=== PATIENT | male | born 1975 | race Caucasian/White ===

== ENCOUNTER 2017-03-23 01:41 | Emergency (ER) | payer SELFPAY ==
--- NOTE | 2017-03-23 01:57 | EDM.PDOC ---
ED HPI GENERAL MEDICAL PROBLEM - General Chief Complaint: Cardiovascular Problem Stated Complaint: CHEST PAINS Time Seen by Provider: 03/23/17 01:50 - History of Present Illness INITIAL COMMENTS - FREE TEXT/NARRATIVE: HISTORY AND PHYSICAL: History of present illness: Patient's 41-year-old white male with history of anxiety presents a concern of palpitations denies chest pain service breath nausea vomiting or other complaints seen in the past for this multiple times he is also taking classes as an outpatient for anxiety Review of systems: As per history of present illness and below otherwise all systems reviewed and negative. Past medical history: As per history of present illness and as reviewed below otherwise noncontributory. Surgical history: As per history of present illness and as reviewed below otherwise noncontributory. Social history: No reported history of drug or alcohol abuse. Family history: As per history of present illness and as reviewed below otherwise noncontributory. Physical exam: HEENT: Atraumatic, normocephalic, pupils reactive, negative for conjunctival pallor or scleral icterus, mucous membranes moist, throat clear, neck supple, nontender, trachea midline. Lungs: Clear to auscultation, breath sounds equal bilaterally, chest nontender. Heart: S1S2, regular, negative for clicks, rubs, or JVD. Abdomen: Soft, nondistended, nontender. Negative for masses or hepatosplenomegaly. Negative for costovertebral tenderness. Pelvis: Stable nontender. Genitourinary: Deferred. Rectal: Deferred. Extremities: Atraumatic, negative for cords or calf pain. Neurovascular unremarkable. Neuro: Awake, alert, oriented. Cranial nerves II through XII unremarkable. Cerebellum unremarkable. Motor and sensory unremarkable throughout. Exam nonfocal. Diagnostics: Chest x-ray EKG Therapeutics: None Impression: #1 anxiety #2 palpitations Definitive disposition and diagnosis as appropriate pending reevaluation and review of above. - Related Data Allergies Allergy/AdvReac Type Severity Reaction Status Date / Time morphine Allergy Rash Verified 03/23/17 01:53 Home Meds: Home Meds Quinapril [Accupril] 10 mg PO DAILY 03/23/17 [History] Past Medical History HEENT History: Reports: None Cardiovascular History: Reports: Hypertension, Other (See Below) Other Cardiovascular History: DYSRYTHMIA Respiratory History: Reports: None Gastrointestinal History: Reports: None Neurological History: Reports: None Psychiatric History: Reports: Anxiety Endocrine/Metabolic History: Reports: None Hematologic History: Reports: None Dermatologic History: Reports: None - Past Surgical History Musculoskeletal Surgical History: Reports: Arthroscopic Knee, Other (See Below) Social & Family History - Family History Cardiac: Reports: CAD, Hypertension, Stent Endocrine/Metabolic: Reports: Diabetes, type II - Tobacco Use Smoking Status *Q: Never Smoker Second Hand Smoke Exposure: No - Alcohol Use Days Per Week of Alcohol Use: 0 - Recreational Drug Use Recreational Drug Use: No Drug Use in Last 12 Months: Yes Recreational Drug Type: Reports: Other (see below) Recreational Drug Use Frequency: Not Used In Over 1 Month ED ROS GENERAL - Review of Systems Review Of Systems: ROS reveals no pertinent complaints other than HPI. ED EXAM, GENERAL - Physical Exam Exam: See Below (See dictation) Departure - Departure Time of Disposition: 01:56 Disposition: Home, Self-Care 01 Condition: Good Clinical Impression: Palpitations, Anxiety Referrals: PCP,None [Primary Care Provider] - Additional Instructions: The following information is given to patients seen in the emergency department who are being discharged to home. This information is to outline your options for follow-up care. We provide all patients seen in our emergency department with a follow-up referral. The need for follow-up, as well as the timing and circumstances, are variable depending upon the specifics of your emergency department visit. If you don't have a primary care physician on staff, we will provide you with a referral. We always advise you to contact your personal physician following an emergency department visit to inform them of the circumstance of the visit and for follow-up with them and/or the need for any referrals to a consulting specialist. The emergency department will also refer you to a specialist when appropriate. This referral assures that you have the opportunity for followup care with a specialist. All of these measure are taken in an effort to provide you with optimal care, which includes your followup. Under all circumstances we always encourage you to contact your private physician who remains a resource for coordinating your care. When calling for followup care, please make the office aware that this follow-up is from your recent emergency room visit. If for any reason you are refused follow-up, please contact the [facility] emergency department at and asked to speak to the emergency department charge nurse. Follow-up primary medical doctor 1 today's return as needed as discussed
[2017-03-23 06:36] VITALS: BP 146/84
--- NOTE | 2017-03-25 10:38 | CR ---
EXAM DATE: 03/23/17 PATIENT'S AGE: 41 Patient: HUSSAIN CORREA Facility: [place], [place] Site . Site : [id number] Study: XRay Chest [id number]/16/2017 2:34:23 AM Ordering Physician: Misty Lucas Final Report: INDICATION: PALPITATIONS TECHNIQUE: Chest 1 view. COMPARISON: 08/30/2015. FINDINGS: No pneumothorax or pleural effusion. Lungs are clear. Cardiac and mediastinal contours are within normal limits. Upper abdomen and osseous structures as imaged show no acute abnormality. IMPRESSION: No acute cardiopulmonary disease. Dictated by: Clifford Jhaveri MD @ 03/23/2017 02:48:52 (Electronic Signature) Report Signed by Proxy. [facility]
== END 2017-03-23 03:06 | disposition home or self-care (01) ==
LOC: MW.ED 01:41
DX: F41.9 Anxiety disorder, unspecified (principal); I10 Essential (primary) hypertension; Z88.5 Allergy status to narcotic agent
CPT/HCPCS: 71010; 71010-26; 93005; 99282; 99284-25

== ENCOUNTER 2020-05-16 19:13 | Emergency (ER) | payer SELFPAY ==
--- NOTE | 2020-05-16 19:31 | EDM.PDOC ---
ED HPI GENERAL MEDICAL PROBLEM - General Stated Complaint: POSSIBLE COVID SYMPTOMS Time Seen by Provider: 05/16/20 19:45 Source of Information: Reports: Patient - History of Present Illness INITIAL COMMENTS - FREE TEXT/NARRATIVE: Patient is a 44-year-old male presents today for flulike symptoms. Patient states he had a dry cough body aches fevers and chills. Patient denies any shortness of breath or nausea vomiting. Patient did mention that his tested positive for Covid this past Saturday. Onset: Today - Related Data Allergies Allergy/AdvReac Type Severity Reaction Status Date / Time morphine Allergy Rash Verified 05/16/20 19:30 Home Meds: Home Meds Quinapril [Accupril] 10 mg PO DAILY 03/23/17 [History] Past Medical History - Past Health History Medical/Surgical History: Denies Medical/Surgical History HEENT History: Reports: None Other HEENT History: wears glasses Cardiovascular History: Reports: Hypertension, Other (See Below) Other Cardiovascular History: DYSRYTHMIA Respiratory History: Reports: None Gastrointestinal History: Reports: None Neurological History: Reports: None Psychiatric History: Reports: Anxiety Endocrine/Metabolic History: Reports: None Hematologic History: Reports: None Dermatologic History: Reports: None - Past Surgical History Musculoskeletal Surgical History: Reports: Arthroscopic Knee, Other (See Below) Social & Family History - Family History Family Medical History: Noncontributory Cardiac: Reports: CAD, Hypertension, Stent Endocrine/Metabolic: Reports: Diabetes, type II ED ROS GENERAL - Review of Systems Review Of Systems: See Below Constitutional: Reports: Fever, Chills, Weakness, Fatigue HEENT: Reports: No Symptoms Respiratory: Reports: No Symptoms Cardiovascular: Reports: No Symptoms Endocrine: Reports: No Symptoms GI/Abdominal: Reports: No Symptoms : Reports: No Symptoms Musculoskeletal: Reports: Muscle Pain Skin: Reports: No Symptoms Neurological: Reports: No Symptoms Psychiatric: Reports: No Symptoms Hematologic/Lymphatic: Reports: No Symptoms Immunologic: Reports: No Symptoms ED EXAM, GENERAL - Physical Exam Exam: See Below Exam Limited By: No Limitations General Appearance: Alert, No Apparent Distress Eye Exam: Bilateral Eye: EOMI, PERRL Nose: Normal Inspection Respiratory/Chest: No Respiratory Distress, Lungs Clear, Normal Breath Sounds Cardiovascular: Normal Peripheral Pulses, Regular Rate, Rhythm GI/Abdominal: Normal Bowel Sounds, Soft, Non-Tender Extremities: Normal Inspection Neurological: Alert, Oriented, CN II-XII Intact Course - Vital Signs Last Recorded V/S: Last Vital Signs Temp 96.6 F L 05/16/20 19:30 Pulse 96 05/16/20 19:30 Resp 18 05/16/20 19:30 BP 185/90 H 05/16/20 19:30 Pulse Ox 99 05/16/20 19:30 - Orders/Labs/Meds Orders: Active Orders 24 hr Category Date Time Status CORONAVIRUS COVID-19 SERGIO [MOLEC] Stat Lab 05/16/20 20:00 Received Isolation [COMM] Routine Oth 05/16/20 19:44 Active Labs: Laboratory Tests 05/16/20 05/16/20 Range/Units 20:00 20:00 WBC 4.43 (4.0-11.0) K/uL RBC 4.88 (4.50-5.90) M/uL Hgb 14.4 (13.0-17.0) g/dL Hct 42.6 (38.0-50.0) % MCV 87.3 (80.0-98.0) fL MCH 29.5 (27.0-32.0) pg MCHC 33.8 (31.0-37.0) g/dL RDW Std Deviation 40.2 (28.0-62.0) fl RDW Coeff of Antionette 13 (11.0-15.0) % Plt Count 198 (150-400) K/uL MPV 9.30 (7.40-12.00) fL Add Manual Diff YES Neutrophils % (Manual) 51 (48.0-80.0) % Lymphocytes % (Manual) 27 (16.0-40.0) % Monocytes % (Manual) 22 H (0.0-15.0) % Nucleated RBC % 0.0 /100WBC Absolute Seg Neuts 2.3 (1.4-5.7) Lymphocytes # (Manual) 1.2 (0.6-2.4) Monocytes # (Manual) 1.0 H (0.0-0.8) Nucleated RBCs # 0 K/uL Sodium 136 (136-148) mmol/L Potassium 3.6 (3.5-5.1) mmol/L Chloride 101 (98-107) mmol/L Carbon Dioxide 28.0 (21.0-32.0) mmol/L BUN 9 (7.0-18.0) mg/dL Creatinine 1.3 (0.8-1.3) mg/dL Est Cr Clr Drug Dosing 72.51 mL/min Estimated GFR (MDRD) 60.0 ml/min Glucose 152 H (74-106) mg/dL Calcium 9.0 (8.5-10.1) mg/dL Departure - Departure Time of Disposition: 20:49 Disposition: Home, Self-Care 01 Condition: Good Clinical Impression: Viral illness - Discharge Information *PRESCRIPTION DRUG MONITORING PROGRAM REVIEWED*: Not Applicable *COPY OF PRESCRIPTION DRUG MONITORING REPORT IN PATIENT MALLORY: Not Applicable Instructions: Viral Illness, Adult Referrals: Nick Marks MD [Primary Care Provider] - Additional Instructions: The following information is given to patients seen in the emergency department who are being discharged to home. This information is to outline your options for follow-up care. We provide all patients seen in our emergency department with a follow-up referral. The need for follow-up, as well as the timing and circumstances, are variable depending upon the specifics of your emergency department visit. If you don't have a primary care physician on staff, we will provide you with a referral. We always advise you to contact your personal physician following an emergency department visit to inform them of the circumstance of the visit and for follow-up with them and/or the need for any referrals to a consulting specialist. The emergency department will also refer you to a specialist when appropriate. This referral assures that you have the opportunity for follow-up care with a specialist. All of these measure are taken in an effort to provide you with optimal care, which includes your follow-up. Under all circumstances we always encourage you to contact your private physician who remains a resource for coordinating your care. When calling for follow-up care, please make the office aware that this follow-up is from your recent emergency room visit. If for any reason you are refused follow-up, please contact the [facility] Emergency Department at and asked to speak to the emergency department charge nurse. We will call you with your culture results in the next few days. After has been tested positive please be careful and try to quarantine as best she can for the next 3 days. Please follow up with your primary care physician. If you do not have a primary care physician, see below: [facility] [address] [place], [place] [id number] [address] [facility] [address] [place] [address] Sepsis Event Note (ED) - Focused Exam Vital Signs: Vital Signs Temp Pulse Resp BP Pulse Ox 05/16/20 19:30 96.6 F L 96 18 185/90 H 99 - My Orders Last 24 Hours: My Active Orders 05/16/20 19:44 Isolation [COMM] Routine 05/16/20 20:00 CORONAVIRUS COVID-19 SERGIO [MOLEC] Stat - Assessment/Plan Last 24 Hours: My Active Orders 05/16/20 19:44 Isolation [COMM] Routine 05/16/20 20:00 CORONAVIRUS COVID-19 SERGIO [MOLEC] Stat Plan: Patient is a 44-year-old resents for flulike symptoms. Patient states he has had body aches fever and chills but denies any shortness of breath. Will obtain labs x-ray and reassess. Patient flu test is negative. Patient labs also reviewed. As well as x-ray. Patient continues to sat greater than 97% on room air. Patient stable for discharge home. Patient told to be careful in quarantine as his is Covid we will call patient with his Covid results in the next few days.
[2020-05-16 19:34] VITALS: PULSE 96
--- NOTE | 2020-05-16 20:18 | CR ---
Indication: Cough and shortness of breath Comparison: None available. Technique: Single AP view chest Findings: There is mild chronic interstitial change. There is no dense consolidation, effusion or pneumothorax. The cardiac silhouette is stable. The bony thorax is grossly intact. Impression: There is mild hyperinflation and chronic interstitial change without evidence of dense consolidation. Dictated by Dominguez Castro MD @ May 16 2020 8:16PM Signed by Dr. Dominguez Castro @ May 16 2020 8:17PM
[2020-05-16 20:22] LABS: POTASSIUM,K 3.6 mmol/L (3.5-5.1)
[2020-05-16 21:20] VITALS: BP 150/97
== END 2020-05-16 21:15 | disposition home or self-care (01) ==
LOC: MW.ED 19:13
DX: U07.1 COVID-19 (principal); I10 Essential (primary) hypertension; Z88.5 Allergy status to narcotic agent; Z79.899 Other long term (current) drug therapy
CPT/HCPCS: 36415; 71045; 71045-26; 80048; 85025; 87804; 99282; 99283-25; U0002

== ENCOUNTER 2024-01-12 19:42 | Emergency (ER) | payer BC | END 2024-01-12 22:32 | disposition left against medical advice (07) | LOC: MW.ED 19:42 | DX: Z53.21 Procedure and treatment not carried out due to patient leaving prior to being seen by health care provider (principal) ==